=== PATIENT | female | born 1995 | race African-American/Black ===

== ENCOUNTER 2022-01-16 19:31 | Emergency (ER) | payer OTHER ==
[~2022-01-16] VITALS: Ht 170.2 cm; Wt 83.9 kg
== END 2022-01-16 20:02 | disposition home or self-care (01) ==
LOC: ER 19:39
DX: O26.91 Pregnancy related conditions, unspecified, first trimester (principal); R10.30 Lower abdominal pain, unspecified; M54.2 Cervicalgia; V43.52XA Car driver injured in collision with other type car in traffic accident, initial encounter; Y92.488 Other paved roadways as the place of occurrence of the external cause
CPT/HCPCS: 99282

== ENCOUNTER 2024-03-09 08:03 | Emergency (ER) | payer BC, OTHER ==
[~2024-03-09] VITALS: Ht 170.2 cm; Wt 92.1 kg
[2024-03-09 08:15] VITALS: PULSE 78; RESP 16; TEMP 97.9; O2SAT 100
[2024-03-09] MEDS ORDERED: FLUORESCEIN SOD(OPTH) 1 MG STRP ONE (08:44)
[2024-03-09] MEDS: FLUORESCEIN SOD(OPTH) 1 MG STRP OP ONE (08:45)
[2024-03-09] MEDS: IBUPROFEN 600 MG TAB PO STA (09:15)
== END 2024-03-09 09:50 | disposition other institution (70) ==
LOC: FSED 08:28
DX: H57.12 Ocular pain, left eye (principal); H05.222 Edema of left orbit; H10.9 Unspecified conjunctivitis; H54.62 Unqualified visual loss, left eye, normal vision right eye; F17.210 Nicotine dependence, cigarettes, uncomplicated
CPT/HCPCS: 99284